=== PATIENT | female | born 1950 ===

== ENCOUNTER 2023-08-26 08:23 | Day surgery (SDC) | payer OTHER ==
[2023-08-24 13:58] LABS: HEMATOCRIT 43.1 % (36.0-45.00); HEMOGLOBIN 14.2 g/dL (12.0-15.00); MEAN CELL VOLUME 86.5 fL (80.00-100.00); MEAN CORPUSCULAR HEMOGLOBIN 28.5 pg (27.00-32.0); PLATELET COUNT 218 K/uL (150-450); RED BLOOD COUNT 4.98 M/uL (4.00-6.00); RED CELL DISTRIBUTION WIDTH 16.2 % (11.5-14.5)
[2023-08-24 14:02] LABS: URINE APPEARANCE Clear; URINE BACTERIA 396.8 uL (0.0-1933); URINE BILIRRUBIN Negative (NEGATIVE); URINE BLOOD Negative; URINE COLOR Dark Yellow; URINE GLUCOSE Negative (NEGATIVE); URINE LEUKOCYTE Trace; URINE NITRATE Negative; URINE PROTEIN Trace (NEGATIVE); URINE RBC 7.6 uL (0.0-20.8); URINE UROBILINOGEN 0.2 E.U./dl; URINE WBC 12.9 uL (0.0-23.2)
[2023-08-24 14:29] LABS: ALBUMIN 3.6 gm/dL (3.4-5.0); BILIRUBIN TOTAL 0.78 mg/dL (0.3-1.2); CALCIUM 9.3 mg/dL (8.5-10.1); CREATININE SERUM 1.05 mg/dL (0.55-1.02); GFR 51.23; GLOBULINA 4.2 G/DL (2.4-3.5); POTASSIUM 4.37 mEq/L (3.5-5.1); TOTAL PROTEIN 7.8 gm/dL (6.4-8.2)
[2023-08-24 14:36] LABS: INR 1.03; PARTIAL THROMBOPLASTIN TIME 27.6 SECONDS (22.0-34.0); PROTHROMBIN TIME 10.8 SECONDS (9.0-11.5)
[~2023-08-26 08:23] MED LIST: ATACAND32 MG PO; METROPOLOL
== END 2023-08-26 20:20 | disposition home or self-care (01) ==
LOC: CIR.AMB 08:23
PROVIDERS: ATTEND Obstetrics & Gynecology
DX: N84.0 Polyp of corpus uteri (principal); N95.0 Postmenopausal bleeding; I10 Essential (primary) hypertension; Z20.822 Contact with and (suspected) exposure to COVID-19

== ENCOUNTER 2023-11-11 15:25 | Outpatient (CLI) | payer OTHER | END 2023-11-11 15:27 | disposition home or self-care (01) | LOC: SONOGRAMA 15:25 | PROVIDERS: ATTEND Pathology Anatomic Pathology & Clinical Pathology | DX: D34 Benign neoplasm of thyroid gland (principal); E07.89 Other specified disorders of thyroid; D44.0 Neoplasm of uncertain behavior of thyroid gland ==